=== PATIENT | female | born 1940 | race Hispanic/Latino ===

== ENCOUNTER 2016-10-18 11:18 | Day surgery (SDC) | payer MEDICARE ==
[2016-10-18] MEDS ORDERED: IOPIDINE OD ONE (11:40)
[2016-10-18] MEDS ORDERED: AK-Dilate OD ONE (11:40)
[2016-10-18] MEDS ORDERED: MYDRIACYL 1% OD ONE (11:40)
[2016-10-18 12:01] VITALS: BP 158/80
[2016-10-18] MEDS ORDERED: TETRACAINE 0.5% ONE (13:15)
== END 2016-10-18 11:19 | disposition home or self-care (01) ==
LOC: OR 11:18
PROVIDERS: ATTEND Ophthalmology
DX: H26.491 Other secondary cataract, right eye (principal); I25.2 Old myocardial infarction; I10 Essential (primary) hypertension; E78.00 Pure hypercholesterolemia, unspecified; M19.90 Unspecified osteoarthritis, unspecified site; E03.9 Hypothyroidism, unspecified; Z95.5 Presence of coronary angioplasty implant and graft; Z95.1 Presence of aortocoronary bypass graft; Z85.41 Personal history of malignant neoplasm of cervix uteri; Z87.891 Personal history of nicotine dependence; Z98.41 Cataract extraction status, right eye; Z98.42 Cataract extraction status, left eye; Z90.710 Acquired absence of both cervix and uterus; Z90.49 Acquired absence of other specified parts of digestive tract